=== PATIENT | female | born 1940 | race African-American/Black ===

== ENCOUNTER 2018-10-22 15:14 | Inpatient (IN) | payer MEDICARE, OTHER ==
[~2018-10-22] VITALS: Ht 152.4 cm; Wt 44.1 kg
[~2018-10-22 15:14] MED LIST: CLOP75TA27 PO; EMTR1TAB7 PO; HYDR-4011 PO; METO25TA4 PO; MULTI PO; TRAZ-111 PO
[2018-10-22] MEDS ORDERED: ALBUTEROL 0.083% (NEB) 2.5 MG/3 ML AMP INH STA (15:22)
[2018-10-22] MEDS ORDERED: IPRATROPIUM (NEB) 0.5 MG/2.5 ML AMP INH STA (15:22)
[2018-10-22] MEDS ORDERED: DEXAMETHASONE 10 MG/ML 1 ML INJ IV ONE (15:30)
[2018-10-22] MEDS ORDERED: ACETAMINOPHEN 325 MG TAB PO PRN ×2 (18:00→18:30)
[2018-10-22] MEDS ORDERED: ONDANSETRON 4 MG INJ IV PRN ×2 (18:00→18:30)
[2018-10-22] MEDS ORDERED: MAGNESIUM HYDROXIDE 30ML CUP PO PRN (18:30)
[2018-10-22] MEDS ORDERED: DOCUSATE SODIUM 100 MG CAP PO PRN (18:30)
[2018-10-22] MEDS ORDERED: hydrALAzine 20 MG INJ IV PRN (18:30)
[2018-10-22] MEDS ORDERED: NITROGLYCERIN (SL) 0.4 MG TAB SL PRN (18:30)
[2018-10-22] MEDS ORDERED: LORAZEPAM 2 MG INJ IV PRN (18:30)
[2018-10-22] MEDS ORDERED: morphine 2 MG INJ IV PRN (18:30)
[2018-10-22] MEDS ORDERED: NACL 0.9% 3 ML SYG IV SCH (18:30)
[2018-10-22] MEDS ORDERED: HYDROCODONE/APAP (5/325) TAB PO PRN (18:30)
[2018-10-22] MEDS ORDERED: SOD CHLORIDE 0.9% 100 ML ONE (19:08)
[2018-10-22] MEDS ORDERED: IOHEXOL 300MG/ML 150 ML BTL ONE (19:08)
[2018-10-23 01:47] VITALS: BP 146/67; PULSE 93; RESP 19
[2018-10-23 01:51] VITALS: Ht 152.4 cm; Wt 44.1 kg
[2018-10-23] MEDS: HEPARIN 5,000 UNIT/1 ML VIAL SC SCH ×3 (02:12→20:22)
[2018-10-23] MEDS: SOD CHLORIDE 0.45% 1,000 ML IV SCH ×3 (02:12→23:40)
[2018-10-23] MEDS: traZODone 50 MG TAB PO SCH ×2 (02:12→20:22)
[2018-10-23 08:03] VITALS: BP 156/66; PULSE 101
[2018-10-23] MEDS ORDERED: [UNRECOGNIZED DRUG - OTHER] PO SCH (09:00)
[2018-10-23] MEDS: FAMOTIDINE 20 MG TAB PO SCH (09:00)
[2018-10-23] MEDS: MULTIVITAMINS THERAPEUTIC TAB PO SCH (09:05)
[2018-10-23] MEDS: CLOPIDOGREL 75 MG TAB PO SCH (09:05)
[2018-10-23 11:19] VITALS: BP 162/72; PULSE 79; RESP 20
[2018-10-23 15:14] VITALS: BP_SYST 147; BP_SYST 99; BP_DIAS 64; PULSE 80; RESP 20
[2018-10-23 19:56] VITALS: BP 152/67; PULSE 88; RESP 20
[2018-10-23 23:53] VITALS: BP 135/62; PULSE 91; RESP 20
[2018-10-24 04:00] VITALS: BP 117/57; PULSE 83; RESP 20
[2018-10-24 08:04] VITALS: BP 144/75; PULSE 117; RESP 24
[2018-10-24] MEDS: HEPARIN 5,000 UNIT/1 ML VIAL SC SCH ×2 (09:00→21:00)
[2018-10-24] MEDS: MULTIVITAMINS THERAPEUTIC TAB PO SCH (09:17)
[2018-10-24] MEDS: FAMOTIDINE 20 MG TAB PO SCH (09:17)
[2018-10-24] MEDS: CLOPIDOGREL 75 MG TAB PO SCH (09:18)
[2018-10-24 11:49] VITALS: BP 167/77; PULSE 83; RESP 20
[2018-10-24] MEDS: SOD CHLORIDE 0.45% 1,000 ML IV SCH (12:45)
[2018-10-24 15:52] VITALS: BP 134/60; PULSE 92; RESP 22
[2018-10-24 20:00] VITALS: BP 162/67; PULSE 98; RESP 18
[2018-10-24] MEDS: traZODone 50 MG TAB PO SCH (21:58)
[2018-10-24] MEDS: ALBUTEROL/IPRATROPIUM (NEB) 3 ML AMP HHN PRN (22:12)
[2018-10-25] MEDS: SOD CHLORIDE 0.45% 1,000 ML IV SCH ×2 (01:33→14:57)
[2018-10-25 07:14] VITALS: BP 120/58; PULSE 89; RESP 18
[2018-10-25] MEDS: CLOPIDOGREL 75 MG TAB PO SCH (08:47)
[2018-10-25] MEDS: HEPARIN 5,000 UNIT/1 ML VIAL SC SCH ×2 (08:47→21:00)
[2018-10-25] MEDS: FAMOTIDINE 20 MG TAB PO SCH (08:47)
[2018-10-25] MEDS: MULTIVITAMINS THERAPEUTIC TAB PO SCH (08:48)
[2018-10-25] MEDS: MUPIROCIN 2% 22 GM OINT TOP SCH ×2 (10:14→21:29)
[2018-10-25 15:05] VITALS: BP 132/63; PULSE 115; RESP 18
[2018-10-25] MEDS: ALBUTEROL/IPRATROPIUM (NEB) 3 ML AMP HHN PRN (18:25)
[2018-10-25 20:00] VITALS: BP 143/66; PULSE 115; RESP 18
[2018-10-25] MEDS: traZODone 50 MG TAB PO SCH (21:29)
[2018-10-26 07:27] VITALS: BP 123/59; PULSE 112; RESP 20
[2018-10-26] MEDS: HEPARIN 5,000 UNIT/1 ML VIAL SC SCH (09:00)
[2018-10-26] MEDS: MUPIROCIN 2% 22 GM OINT TOP SCH (09:00)
[2018-10-26] MEDS: FAMOTIDINE 20 MG TAB PO SCH (09:00)
[2018-10-26] MEDS: CLOPIDOGREL 75 MG TAB PO SCH (09:59)
[2018-10-26] MEDS: MULTIVITAMINS THERAPEUTIC TAB PO SCH (10:02)
[2018-10-26 11:09] VITALS: BP 120/60; PULSE 119; RESP 20
[2018-10-26 15:05] VITALS: BP 141/63; PULSE 117; RESP 18
== END 2018-10-26 16:30 | DRG 191 ==
LOC: E/R 15:14 → 6WM 22:04
PROVIDERS: ADMIT Hospitalist; ATTEND Hospitalist
DX: J44.1 Chronic obstructive pulmonary disease with (acute) exacerbation (principal); B20 Human immunodeficiency virus [HIV] disease; R09.02 Hypoxemia; Z87.891 Personal history of nicotine dependence
CPT/HCPCS: 36600; 71045; 71046; 71270; 80053; 82803; 84439; 84484; 85025; 87081; 92610; 93005; 93306; 94640; 94664; 96374; 97167; J1100; J1644; J2060; Q9967